=== PATIENT | male | born 1970 | race American Indian/Alaskan Native ===

== ENCOUNTER 2019-03-25 07:25 | Emergency (ER) | payer SELFPAY ==
[2019-03-25 07:42] VITALS: BP 113/73
--- NOTE | 2019-03-25 08:26 | XRay Report ---
RIGHT HAND HISTORY: Trauma 3 weeks ago. Persistent pain and swelling. COMPARISON: None. TECHNIQUE: 3 views of the right hand were obtained. FINDINGS: Bones: No fracture or dislocation. Joint spaces: Maintained. Soft tissues: Mild soft tissue swelling on the dorsum of the hand but no other significant soft tissu e swelling. A tiny calcific density is identified lateral to the radial head on 2 views but there is no associated soft tissue swelling. Additional findings: None. IMPRESSION: 1. Mild nonspecific soft tissue swelling. 2. A tiny calcific density lateral to the radial head which is probably not clinically significant. Signer Name: Nnamdi Ramires MD Signed: 03/25/2019 8:22 AM Workstation Name: [id number]
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
== END 2019-03-25 09:52 | disposition home or self-care (01) ==
LOC: ED 07:25
DX: S69.91XA Unspecified injury of right wrist, hand and finger(s), initial encounter (principal); Z79.899 Other long term (current) drug therapy; W22.8XXA Striking against or struck by other objects, initial encounter; Y93.89 Activity, other specified; Y92.89 Other specified places as the place of occurrence of the external cause; Y99.8 Other external cause status